=== PATIENT | female | born 1990 | race Caucasian/White ===

== ENCOUNTER 2017-10-26 16:47 | Emergency (ER) | payer OTHER ==
[~2017-10-26] VITALS: Ht 152.4 cm; Wt 63.5 kg
[2017-10-26 16:57] VITALS: Ht 152.4 cm; Wt 63.5 kg
[2017-10-26 18:48] LABS: microscopic required? YES; urine erythrocyte NEGATIVE (NEGATIVE)
[2017-10-26 18:50] LABS: BASOPHIL % 0.7 % (0-2); PLATELET COUNT 337 x10^3mcL (130-400); RED CELL DISTRIBUTION WIDTH 14.2 % (11.5-14.5)
[2017-10-26 22:09] VITALS: BP 104/57
== END 2017-10-26 22:09 | disposition home or self-care (01) ==
LOC: ED 16:47
PROVIDERS: Emergency Medicine
DX: O23.01 Infections of kidney in pregnancy, first trimester (principal); Z3A.01 Less than 8 weeks gestation of pregnancy
CPT/HCPCS: J0696; J2270; J2405; J2765; J7030

== ENCOUNTER 2019-12-29 21:28 | Emergency (ER) | payer OTHER ==
[~2019-12-29] VITALS: Ht 149.9 cm; Wt 62.8 kg
[2019-12-29 21:37] VITALS: Ht 149.9 cm; Wt 62.8 kg
== END 2019-12-30 01:56 | disposition left against medical advice (07) ==
LOC: ED 21:28
DX: Z13.9 Encounter for screening, unspecified (principal); R05 Cough; R07.89 Other chest pain
CPT/HCPCS: 87804